=== PATIENT | female | born 1990 | race Caucasian/White ===

== ENCOUNTER 2016-07-28 15:55 | Emergency (ER) | payer SELFPAY ==
[~2016-07-28] VITALS: Ht 154.9 cm; Wt 48.0 kg
[2016-07-28 18:13] VITALS: BP 127/75
== END 2016-07-28 18:20 | disposition home or self-care (01) ==
LOC: ER 16:09
DX: S16.1XXA Strain of muscle, fascia and tendon at neck level, initial encounter (principal); S29.012A Strain of muscle and tendon of back wall of thorax, initial encounter; V49.9XXA Car occupant (driver) (passenger) injured in unspecified traffic accident, initial encounter; Y93.89 Activity, other specified; Y92.89 Other specified places as the place of occurrence of the external cause; Y99.8 Other external cause status
CPT/HCPCS: 99282

== ENCOUNTER 2020-02-23 14:19 | Emergency (ER) | payer OTHER ==
[~2020-02-23] VITALS: Ht 154.9 cm; Wt 55.0 kg
[2020-02-23] MEDS ORDERED: ACETAMINOPHEN 325MG TABLET PO ONE (14:45)
[2020-02-23] MEDS ORDERED: IBUPROFEN 600MG TABLET PO ONE (14:45)
[2020-02-23 15:13] VITALS: BP 113/68
== END 2020-02-23 15:36 | disposition home or self-care (01) ==
LOC: ER 14:35
DX: S97.82XA Crushing injury of left foot, initial encounter (principal); S90.122A Contusion of left lesser toe(s) without damage to nail, initial encounter; W22.8XXA Striking against or struck by other objects, initial encounter; Y93.89 Activity, other specified; Y92.238 Other place in hospital as the place of occurrence of the external cause
CPT/HCPCS: 73630; 99283